=== PATIENT | male | born 1940 | race Caucasian/White ===

== ENCOUNTER → 2018-08-03 06:19 | Outpatient (CLI) | payer OTHER, SELFPAY ==
[2016-10-05 01:34] VITALS: BMI 69.6
--- NOTE | 2018-08-03 06:28 | RAD_ITS ---
STUDY: X-RAY CHEST REASON FOR EXAM: Male, 77 years old. COPD TECHNIQUE: Frontal and lateral views COMPARISON: None. FINDINGS: The lungs are expanded. Bibasilar atelectasis and interstitial prominence. Normal size heart. Normal mediastinum and juve. Normal visualized pulmonary arteries. Calcified aortic arch and descending thoracic aorta. Mild degenerative changes of the thoracic spine. Normal visualized ribs, clavicles, and shoulders. There is no demonstrated abnormality of the visualized soft tissue structures of the upper abdomen. RAD/Chest PA and Lateral IMPRESSION: Bibasilar atelectasis and interstitial prominence. Electronically Signed: Clement Lawson DO at 19:10 EDT Tel [phone], Service support ,
--- NOTE | 2018-08-03 10:57 | PFTCOMP ---
COMPLETE PULMONARY FUNCTION TEST INTERPRETATION Brief HPI: Patient is a 77 year old male, currently under the care of Dr. Gallardo, who presents to [facility] for complete pulmonary function tests secondary to diagnosis of COPD and asbestosis. Respiratory therapist reports good effort and reproducible results. Interpretation: Forced expiration spirometry shows a severe large airways obstructive ventilatory defect with an FEV1 of 48% predicted. There is no significant bronchodilator response by strict ATS criteria. Spirograms are of good quality and plateau slowly, indicating slowly emptying areas of the lungs. The respiratory flow volume loop shows decreased expiratory flow rates at all lung volumes consistent with airway obstruction. Lung volumes were not ordered. Diffusion capacity by carbon monoxide is decreased at 26% predicted. The airway resistance was not ordered. Compared to previous pulmonary function tests from 07/22/2011, there is been a significant reduction in FEV1 by 25%. Impression: Irreversible severe large airways obstructive ventilatory defect with symmetric reduction diffusing capacity. There has been worsening compared to previous testing in 2012.
== END ==
PROVIDERS: Family Provider Family Medicine; PCP Family Medicine; Referring Provider Orthopaedic Surgery; Visit Provider Orthopaedic Surgery
DX: J44.9 Chronic obstructive pulmonary disease, unspecified (principal); Z77.090 Contact with and (suspected) exposure to asbestos
CPT/HCPCS: 71046; 94060; 94729

== ENCOUNTER → 2019-11-08 09:18 | Outpatient (CLI) | payer OTHER, SELFPAY ==
--- NOTE | 2019-11-08 09:29 | PR.ITP_ITS ---
General Information - General Information Admitting Diagnosis: COPD/EMPHYSEMA/CHF/CAD Gold Classification:: GOLD 3: Severe Oxygen: 4 - PFT FEV1:: 1.47 FVC:: 2.73 FEV1/FVC%:: 54 - Education/Goals Barriers to Learning: Vision Impairment Individual Counseling: Initial Assessment: Dyspnea control techniques at rest, activity, and ADLs, Inhaled and respiratory medications, Exacerbation prevention & management, O2, Rx, system, safety, ADL management and pacing, Home exercise plan & guidelines Patient Goals: Breathe better: Initial Assessment, Increase endurance/stamina: Initial Assessment, Return to recreation/hobby: Initial Assessment, Control panic/anxiety: Initial Assessment, Return to work: Initial Assessment, Improve diet and nutrition: Initial Assessment, Symptom management: Initial Assessment, Take medications correctly: Initial Assessment, Stop smoking/maintain cessation: Initial Assessment, Improve weight: Initial Assessment Exercise - Initial Assessment - Visit Date of Eval: 11/08/19 - PRE-PULMONARY REHAB EVALUATION - Problem/Goals Problems: Deconditioning, No regular exercise, Knowledge deficit exercise guidelines, Knowledge deficit exercise safety Goals:: Aerobic exercise 30-60 mins x 9 weeks - Physician Prescribed Exercise Modalities: NuStep, SciFit Frequency (days/week): 3 Duration (Minutes):: 30-45 Intensity: 60-80% of age predicted maximum heart rate reserve METs - Progression: 0.5-1.0 MET, RPE 11-14 WEEK: 2.0 - PATIENT VERY DEBILITATED - Plan Plan and Plan to Review:: Benefits of exercise, Core components of exercise, How to measure dyspnea level, How to monitor dyspnea level, Exercise intensity, Exercise safety guideline, Home exercise guidelines, Eduardo: 3-4/-13 Disease Management - Initial - Problems/Goals-Hypoxemia Hypoxemia Problems:: Hypoxemia Hypoxemia Goals:: Hypoxemia managed, Using O2 as Rx's safely - Problems/Goals-Medications Medication Goals: Adherence to prescribed medications, Correct technique/timing & care of MDI, DPI, nebulizer, and spacer. - Problems/Goals-Bronchial Hygiene Bronchial Hygiene Problems:: Ineffective secretion clearance, Respiratory infection Prevention/Management Bronchial Hygiene Goals:: Pt demonstrates effective cough, effective secretion clearance., Pt describes signs and symptoms of infection. - Initial Assessment Medications: Yes MDI, Yes DPI, Yes NEB, Yes Spacer Patient Reports:: Prod cough daily <1 Tbsp, Nasal Congestion - Plans Hypoxemia Plan:: Monitor SpO2 rest & with exercise, Train appropriate O2 use at rest, Train appropriate O2 use with exercise, Train O2 safety & systems Reviewed prescribed medications:: Purpose, Schedule, Side effects, Importance of compliance Instruct correct technique/timing & care:: MDI, DPI, Nebulizer, Return demo use of inhaler Bronchial Hygiene Plan: Controlled cough, Vibratory PEP device, Role of exercise in secretion clearance, Hydration, Hand hygiene, Evaluate sputum, When to call MD, Signs/symptoms to report:, Influenza/Pneumovax vaccines Psychosocial - Initial Assess - Problems/Goals Problems: Anxiety, Ineffective coping, Impaired Q.O.L. - Psychosocial Test Depression:: Anxiety, Impaired QOL Referred to MD for counseling:: No - Plan Reviewed screening results: Yes Instructions given regarding:: Benefits of exercise, Relaxation techniques, Training in coping strategies Stress management: Recommend counseling, Recommended follow-up with MD for cons idered of Rx Tobacco - Initial Assessment - Program Goals Tobacco Program Goals: Complete smoking cessation. Attend education classes. Improve Knowledge Test score - Stage of Change Stages of Change:: Pre-contemplation - PATIENT CONCERNED ABOUT ABILITY TO GET HERE 3-DAYS PER WEEK. REQUIRES ASSISTANCE DRESSING BATHING ETC. AND THEN BEING ABLE TO GET TO THE PROGRAM THROUGH THE HOSPITAL W/O ASSISTANCE., Action - Learning Barriers Learning Barriers: Hearing, Vision - Family Support Do you have family support?: Yes - Tobacco Use Tobacco Use: Non-smoker - Intervention Smoking Cessation Referral:: No Individual Education/Counseling:: No Education Schedule Given:: Yes - Education Gave Education Materials For:: Pulmonary Disease, Risk Factors, Breathing Techniques, Medical Compliance, Pulmonary A&P, Exacerbation Signs & Symptoms, Stress & Relaxation Nutrition/Wt Mgmt - Initial - Problems/Goals Problems: Overweight Goals: Wt Loss 1-2 lbs per week - Weight Management Knowledge Deficit Management of:: Overweight, Osteoporosis, Lack of vitamin D/Ca++ supplement, Role of exercise in weight control, Weight control w /Prednisone Admit Height:: 5 ft 9 in Admit Weight:: 200 lb Admit BMI:: 29.5 - Diabetes Diabetes:: No - Intervention Referral to dietitian:: No Referral to Diabetic Clinic:: No Will attend diet classes:: Yes - Plan Nutrition Plan: Yes Review BMI or WC & identify target wt & strategies for wt control, Yes Nutrition education class:, Yes Medication education class [Prednisone]:, Yes Weight control education class: Patient Health Questionnaire Initial Assessment 1. Little interest or pleasure in doing things: Not at all 2. Feeling down, depressed, or hopeless: Not at all 3. Trouble falling or staying asleep, or sleeping too much: Not at all 4. Feeling tired or having little energy: Several days 5. Poor appetite or overeating: Not at all 6. Feeling bad about yourself -- or that you are a failure or have let yourself or your family down: Several days 7. Trouble concentrating on things, such as reading the newspaper or watching television: Not at all 8. Moving or speaking so slowly that other people could have noticed. Or the opposite - being so fidgety or restless that you have been moving around a lot more than usual: Several days 9. Thoughts that you would be better off , or of hurting yourself in some way: Not at all Total Score: 3 COPD Knowledge Test Initial COPD is a lung disease that:: Makes it hard to breathe & gets worse over time In the [place] the term COPD describes 2 main lung conditions:: Emphysema & chronic bronchitis The most common lung irritant that causes COPD is:: Cigarette smoke Common signs and symptoms of COPD include:: An ongoing cough/cough that produces a large amount of mucus, & SOB If you have COPD, what steps can you take?: All of the above Swelling of the ankles is common in COPD:: True Fatigue [tiredness] is common in COPD:: True Wheezing is common in COPD:: True Crushing chest pain is common in COPD:: True Rapid weight loss is common in COPD:: True Breathlessness is a normal response to exercise: True Exercise should be avoided if it makes you short of breath: True All bronchodilators act within 10 minutes: True A spacer device increases the medication to the lungs: True Annual flu vaccine is recommended for pts w/lung disease: True COPD Knowledge Test Total Score:: 10 COPD Assessment Test [CAT] - Questions Never cough = 0, Cough all the time = 5: 2 No phlegm = 0, Chest full of phlegm = 5: 4 No chest tightness = 0, Chest very tight = 5: 4 No breathless w/exertion = 0, Very breathless w/exertion = 5: 5 No limitations w/activity = 0, Very limited w/activity = 5: 4 Confident leaving home = 0, Not at all confident = 5: 3 Sleep soundly = 0, Don't sleep soundly = 5: 4 Lots of energy = 0, No energy at all = 5: 4 Total CAT score:: 30 Self-Efficacy Initial Assessment We would like to know how confident you are in doing certain activities. Please select your confidence level for:: Select your confidence level for the following using the scale 1-10 where 1 is not at all confident and 10 is totally confident. Your score is the average of all 6 responses. Fatigue: How confident are you that you can keep the fatigue caused by your disease from interfering with the things you want to do? Select Number: 3 Physical Discomfort or Pain: How confident are you that you can keep the physical discomfort or pain of your disease from interfering with the things you want to do? Select Number: 5 Emotional Distress: How confident are you that you can keep the emotional distress caused by your disease from interfering with the things you want to do? Select Number: 5 Other Symptoms or Health Problems: How confident are you that you can keep other symptoms or health problems from interfering with the things you want to do? Select Number: 6 Different Tasks and Activities: How confident are you that you can do the different tasks and activities needed to manage your health condition so as to reduce your need to see a doctor? Select Number: 5 Medication: How confident are you that you can do things other than just taking medication to reduce how much your illness affects your everyday life? Select Number: 5 Total Score:: 4 Nutrition Survey - Nutrition Survey Instructions Scoring Instructions: Scoring is as follows: Yes = 1 points. No = 0 point. Patient score that is >/=12 is considered to be at potential nutritional risk and could benefit from a referral to a registered dietitian. - Nutrition Survey Initial Have you lost >10 lbs over the past 2 months without trying?: No Are you following a special diet at home for diabetes, low fat, or low salt?: Yes Are you interested in meeting with a dietitian for help understanding your diet?: No Do you eat less than 3 meals a day?: Yes Do you eat fatty meats (patel, sausage, ribs, etc), fried foods, desserts, large amounts of salad dressings, margarine, butter, or cheese most days?: No Do you have food allergies? [Enter types in comment field]: No Do you eat in restaurants more than 3 times a week?: No Do you season food with salt, seasoning salt, or garlic salt?: No Do you used canned, boxed, frozen meals, or soups, seasoning packets?: Yes Total Score:: 3
--- NOTE | 2019-11-08 09:29 | PR.HP_ITS ---
History of Present Illness Arrival date:: 11/08/19 Arrival time:: 09:29 Date of Referral:: 11/01/19 Date of Evaluation: 11/08/19 Referring Physician: JORY MONSON Primary Diagnosis: SEVERE COPD GOLD CLASSIFICATION 3 mMRC Breathless Scale: When is the patient short of breath? Y/N Grade: Description of Breathlessness: 0 I only get breathless with strenuous exercise. 1 I get short of breath when hurrying on level ground or walking up a slight hill. 2 On level ground, I walk slower than people of the same age because of breathless, or have to stop for breath when walking at my own pace. 3 I stop for breath after walking 100 yards or after a few minutes on level ground. 4 I am too breathless to leave the house or I am breathless when dressing. Respiratory Problems: Yes: Retain Secretions, Limited Range of Motion, Fatigue, Wheezing, Able to Speak in Full Sentences, Ankle Swelling, Dyspnea at Rest, Dyspnea with Activity, Cough with Secretions Home Medications: Home Medications Albuterol Aerosols [Ventolin Aerosols] 2.5 mg INHALATION Q6HWA.RT 07/01/16 Albuterol Inhaler [Ventolin Hfa] 07/01/16 Apixaban [Eliquis] 5 mg PO BID 07/01/16 Aspirin E.C. [Ecotrin] 81 mg PO DAILY@0800 07/01/16 Benzonatate [Tessalon Perle] 07/01/16 Budesonide Inhaler 180 mcg [Pulmicort Inhaler 180 mcg] 07/01/16 Diltiazem HCl [Diltiazem 24Hr Cd] 120 mg PO 07/01/16 Docusate Sodium [Stool Softener] 100 mg PO 07/01/16 Flaxseed Oil 07/01/16 Furosemide [Lasix] 40 mg PO DAILY 07/01/16 Isosorbide Mononitrate [Imdur] 60 mg PO 07/01/16 Montelukast [Singulair] 07/01/16 Oxygen, Home [Home Oxygen] 2 - 4 lpm NASAL 07/01/16 Pantoprazole Sodium [Protonix] 40 mg PO DAILY 07/01/16 Potassium Gluconate 07/01/16 Potassium Iodide [Sski] 0 g 07/01/16 Prednisone [Deltasone] 20 mg PO 07/01/16 Terazosin HCl [Hytrin] 4 mg PO QHS 07/01/16 Tiotropium [place] [Spiriva 18 MCG] 07/01/16 Warfarin [Coumadin ([facility])] 2.5 mg PO 07/01/16 Atorvastatin Calcium [Lipitor] 20 mg PO QHS 11/08/19 Dofetilide [Tikosyn] 250 mcg PO Q12 11/08/19 Fluticasone Propionate [Flonase Allergy Relief] 9.9 ml NS 11/08/19 Guaifenesin [Mucus Relief] 400 mg PO BID 11/08/19 Ipratropium [place] 0.06% [ATROVENT NASAL SPRAY (g)] 1 spray NASAL TID 11/08/19 Lidocaine [Lidocaine 5%] 35 gm TOPICAL 11/08/19 Olodaterol HCl [Striverdi Respimat] 4 gm IH 11/08/19 Roflumilast [Daliresp] 500 mcg PO 11/08/19 Sennosides/Docusate Sodium [Docusate Sodium-Sennosides Tab] 1 each PO 11/08/19 Torsemide [Demadex] 20 mg PO 11/08/19 Allergies/Adverse Reactions: Allergies No Known Allergies Allergy (Verified 11/08/19 09:42) - Secretions Normal Color:: CLEAR Thick:: Yes Thin:: No Amount/Day:: 1 TSP Cough:: Yes A.T.C.: Yes Hx of Sleep Apnea: Yes Do you snore loudly (louder than talking or can be heard through closed doors)?: Yes - JUST GOT PUT ON CPAP LAST TUESDAY FOR AT NIGHT. Do you often feel tired/ fatigued/ sleepy during daytime?: Yes Has anyone observed you stop breathing during sleep?: No History of Hypertension (for STOP score): Yes STOP Results: Positive Medical Utilization Do you use a peak flow meter at home?: No Do you use a spacer device with your inhalers?: No Number of hospital visits in the last year?: 4 - MAYBE 5 Do you see your physician on a regular schedule?: Yes How often?: 3 MONTHS Advanced Directives - Advanced Directives Power of Business Intelligence Analyst: Yes - DAUGHTER Living Will: Yes Advance Directives Information Provided: No Advance Directives on File: No - PATIENT IS NOT SURE DNR Order?:: Yes - MOLST See MOLST form: No Past Medical History - Covid-19 Screening Fever: No Unexplained muscle aches: No Current respiratory symptoms: No Upper respiratory infections symptoms: No Gastro-intestinal symptoms: No Yct-Tupm-Hmtrjm symptoms: No Has tested positive for COVID-19 in last 30 days: No Had contact w/person w/symptoms or Covid-19 (+) last 14 days: No Has High Risk Exposures ID'd by Health dept/Inf Control team: No 65 years or older:: Yes Lives in Assisted Living facility:: No Has a chronic lung disease or moderate to severe asthma:: Yes Has a serious heart condition:: Yes Immunocompromised:: No Severely obese (Body Mass Index of 40 or higher):: No Diabetic:: No Has chronic kidney disease undergoing dialysis:: No Has liver disease:: No Medical History: Past Medical History (Last Updated 11/08/19 @ 09:51 by Arthur Orellana, CAMPUS SAFETY OFFICER, DSP ENGINEER, BS) A-FIB S/P DCCV A-fib I48.91 Asbestosis J61 CAD (coronary artery disease) I25.10 Cancer of colon C18.9 Congestive heart failure (CHF) I50.9 Dyspnea on minimal exertion R06.00 Emphysema of lung J43.9 GERD (gastroesophageal reflux disease) K21.9 LOST RIGHT FOREARM Pulmonary embolism I26.99 S/P RT HEMICOLECTOMY Acute exacerbation of chronic obstructive pulmonary disease (COPD) J44.1 CKD (chronic kidney disease) N18.9 Chronic obstructive pulmonary disease (COPD) J44.9 - Current/ Previous Services Pulmonary Rehab:: Yes - Comments Comments: PATIENT HAS COMPLETED PULMONARY REHAB ON 3 SEPERATE OCCURANCES FOR THE FULL MAXIMUM OF 36 SESSIONS IN THE PAST. Social History - Smoking History Smoking Status: Former smoker Hx Tobacco Use: No Hx Smoking Exposure: No - Alcohol Use Alcohol Usage: No - Substance Abuse Hx Substance Use: No - Occupation Occupation (List type of work in comments):: Retired - Hobbies, Recreation, Social Activities Recreational Activities: I can hardly do any recreational activities - [facility] IS CHEDULING HOME HEALTH AIDE TO ASSIST PATIENT WITH ALDs Functioning ADL/IADL - Current Ability Current Ability: Needs some help Self-Care (e.g.,grooming, dressing, & bathing), Needs some help Ambulation, Needs some help Transfer, Needs some help Household tasks (e.g., light meal prep, laundry, shopping) - Pt Functioning Prior to Problem Prior Functioning: Self-Care (e.g.,grooming, dressing, & bathing): Needs some help, Ambulation: Needs some help, Transfer: Needs some help, Household tasks (e.g., light meal prep, laundry, shopping): Needs some help Social Environment - Status Marital Status: - Current Living Arrangements Living Environment:: Alone - Children How many children do you have?: 2 Do any of your children live nearby?: No - Safety Do you feel safe in your surroundings?: Yes - Assistance Do you need any assistance at home?: YES; [facility] IS LOOKING IN TO PROVIDED A HOME HEALTH AIDE Review of Systems Review of Systems: Right click = Denies (Slash). Left click = Reports ([place]) Respiratory: Reports: Cough, SOB at Rest, SOB upon Exertion, Sputum production, Wheezing, Fatigue, Sleep, Normal. Denies: Appetite, Normal Risk Factor Assessment - Chief Complaint Chief Complaint: STAGE 3 SEVERE COPD/EMPHYSEMA - Vital Signs Temperature: 97.4 F Pulse Rate: 74 Respiratory Rate: 18 Pulse Ox: 98 - Obesity Height: 5 ft 9 in Weight:: 200 lb Weight in Pounds: 200.0 lbs Weight Source: Estimated by Patient Body Mass Index (BMI): 29.5 - Physical Activity Physical Inactivity: None - Risk Stratification Risk Guidelines: Lowest Risk: Risk Factor for Smoking, Risk Factor for Dyslipidemia, Risk Factor for Diabetes, Moderate Risk: Risk Factor for Hypertension, Highest Risk: Risk Factor for Obesity, Risk Factor for Sedentary Lifestyle - For Smoking Smoking Risk Guidelines: Smoking Low Risk: None or quit greater than 6 months ago. Smoking Moderate Risk: Smoker or quit 6 months or less ago. Smoking High Risk: Smoker - For Dyslipidemia Dyslipidemia Risk Guidelines: Low Risk: Moderate Risk: High Risk: 15-25% fat 25.1-29% fat >/= 30% fat. <7% sat fat 7-9% sat fat >9% sat fat. <150 mg chol 150-299 mg chol >/= 300 mg chol. LDL <100 LDL 100-129 LDL >/= 130. Chol/HDL ratio <5.0 Chol/HDL ratio 5.0-6.0 Chol/HDL ratio >6.0. Triglycerides <100 Triglycerides 100- 149 Triglycerides >/= 150 - For Diabetes Mellitus Diabetes Risk Guidelines: Diabetes Low Risk: HgA1c <6.5% and/or FBG <120. Diabetes Moderate Risk: HgA1c 6.6-7.9% and/or FBG 120-180. Diabetes High Risk: HgA1c >/= 8% and/or FBG >180 - For Obesity/Overweight Obesity/Overweight Risk Guidelines: Obesity Low Risk: BMI <25.0. Obesity Moderate Risk: BMI 25-29.9. Obesity High Risk: BMI >/= 30.0 - For Hypertension Hypertension Risk Guidelines: Hypertension Low Risk: Systolic <120 and Diastolic <80. Hypertension Moderate Risk: Systolic 120-139 and Arabella stolic 80-89. Hypertension High Risk: Systolic >/= 140 and Diastolic >/= 90 - For Sedentary Lifestyle Sedentary Lifestyle Risk Guidelines: Sedentary Lifestyle Low Risk: >/= 1,500 kcal/week. Sedentary Lifestyle Moderate Risk: 700-1,499 kcal/week. Sedentary Lifestyle High Risk: < 700 kcal/week - For Depression Depression Risk Guidelines: Depression Low Risk: Not clinically depressed. Depression Moderate Risk: Mildly depressed. Depression High Risk: Clinically depressed Motivation - Motivation to Participate On a scale of 1 to 10, how prepared are you to commit to attending program?: 8 What do you see as barriers to successfully being able to complete the program?: BEING ABLE TO GET TO [facility] FROM THE MAIN ENTRANCE WITHOUT ASSISTANCE. What do you see as the benefits of succesfully completing the program? In other words, what do you hope to get out of participating in the program?: GETTING STRENGHT BACK. Do you have a spouse or signficant other, family or friends who will help support you to complete the program?: YES Diagnostic Data Review - Pulmonary Function Test FEV1:: 1.47 FVC:: 2.73 FEV1/FVC%:: 54 Gold Classification: GOLD class III(severe COPD)with FEV1/FVC<70, 30%</=FEV1< 50% predicted
[2019-11-08 10:11] VITALS: BMI 29.5
[2019-11-08 10:19] VITALS: PULSE 74; RESP 18; TEMP 36.3; O2SAT 98; BMI 29.5
== END ==
PROVIDERS: PCP Family Medicine
DX: J44.9 Chronic obstructive pulmonary disease, unspecified (principal)

== ENCOUNTER 2019-12-03 14:15 | Outpatient (RCR) | payer OTHER, SELFPAY ==
[2019-11-08 10:19] VITALS: BMI 29.5
== END 2019-12-05 23:59 ==
LOC: PR 14:15
PROVIDERS: PCP Family Medicine
DX: J44.1 Chronic obstructive pulmonary disease with (acute) exacerbation (principal)
CPT/HCPCS: 97150; G0424

== ENCOUNTER 2020-01-04 14:15 | Outpatient (RCR) | payer OTHER, SELFPAY ==
[2019-11-08 10:19] VITALS: BMI 29.5
--- NOTE | 2019-12-12 06:45 | PCM.PR.TP ---
Exercise - 30-Day Assessment - Physician Prescribed Exercise Modalities: NuStep, SciFit Frequency (days/week): 3 Duration (Minutes):: 30-45 Intensity: 60-80% of age predicted maximum heart rate reserve Aerobic Exercise [30-60 min 3-7x/week]:: Not progressing Target heart rate: 86-115 Eduardo-13 METs - Progression: 0.5-1.0 MET, RPE 11-14 WEEK: 3.0 - Home Exercise Home Exercise:: No Time (minutes):: 0 - encouraged home activity Disease Management - 30-Day - Hypoxemia Reassessment: Demonstrates knowledge of O2 Rx at rest, Demonstrates knowledge of O2 Rx with exercise, Using O2 as prescribed, Has home O2 as prescribed, Uses port O2 as prescribed - Medications Medication list reviewed:: Yes Taking medications 100% of the time:: Met Medication reassessment: Yes Pt demonstrates correct technique timing for MDI, Yes Pt demonstrates correct technique timing for DPI, Yes Pt demonstrates correct technique timing for NEB, Yes Pt demonstrates correct technique timing for spacer - Bronchial Hygiene Bronchial Hygiene Plan: Yes Pt demonstrates correctly for effective cough, Yes Pt demo correct for device, Yes Pt demo correct for sputum management, Yes Pt demo correct for improved hydration, Yes Pt demo correct for hand hygiene, Yes Pt demo correct for verbalize when to call MD Psychosocial - 30-Day - Assessment Reassessment: Management of stress & depression, Practicing interventions, Counseling referral, Demonstrate coping strategies, COPD assessment w/ CAT, Geriatric depression screening, Self efficacy score Tobacco - 30-Day Assessment - Program Goals Tobacco Program Goals: Complete smoking cessation. Attend education classes. Improve Knowledge Test score - Stage of Change Stages of Change:: Action - Learning Barriers Learning Barriers: Declined education - Family Support Do you have family support?: No - relies on home health aids - Tobacco Use Tobacco Use: Non-smoker - Education Gave Education Materials For:: Pulmonary Disease, Risk Factors, Breathing Techniques, Medical Compliance, Pulmonary A&P, Exacerbation Signs & Symptoms, Stress & Relaxation Nutrition/Wt Mgmt - 30-Day - Weight Management Weight:: 196 lb Weight Goals Progress:: Progressing Patient Health Questionnaire 30-Day Re-eval Assessment 1. Little interest or pleasure in doing things: Not at all 2. Feeling down, depressed, or hopeless: Not at all 3. Trouble falling or staying asleep, or sleeping too much: Not at all 4. Feeling tired or having little energy: Several days 5. Poor appetite or overeating: Not at all 6. Feeling bad about yourself -- or that you are a failure or have let yourself or your family down: Several days 7. Trouble concentrating on things, such as reading the newspaper or watching television: Not at all 8. Moving or speaking so slowly that other people could have noticed. Or the opposite - being so fidgety or restless that you have been moving around a lot more than usual: Several days 9. Thoughts that you would be better off , or of hurting yourself in some way: Not at all How difficult have these problems made it for you to do your work, take care of things at home, or get along with other people?: Somewhat difficult Total Score: 3 COPD Assessment Test [CAT] - Questions Never cough = 0, Cough all the time = 5: 2 No phlegm = 0, Chest full of phlegm = 5: 4 No chest tightness = 0, Chest very tight = 5: 4 No breathless w/exertion = 0, Very breathless w/exertion = 5: 5 No limitations w/activity = 0, Very limited w/activity = 5: 4 Confident leaving home = 0, Not at all confident = 5: 3 Sleep soundly = 0, Don't sleep soundly = 5: 4 Lots of energy = 0, No energy at all = 5: 4 Total CAT score:: 30 Self-Efficacy 30-Day Re-eval Assessment We would like to know how confident you are in doing certain activities. Please select your confidence level for:: Select your confidence level for the following using the scale 1-10 where 1 is not at all confident and 10 is totally confident. Your score is the average of all 6 responses. Fatigue: How confident are you that you can keep the fatigue caused by your disease from interfering with the things you want to do? Select Number: 3 Physical Discomfort or Pain: How confident are you that you can keep the physical discomfort or pain of your disease from interfering with the things you want to do? Select Number: 5 Emotional Distress: How confident are you that you can keep the emotional distress caused by your disease from interfering with the things you want to do? Select Number: 5 Other Symptoms or Health Problems: How confident are you that you can keep other symptoms or health problems from interfering with the things you want to do? Select Number: 6 Different Tasks and Activities: How confident are you that you can do the different tasks and activities needed to manage your health condition so as to reduce your need to see a doctor? Select Number: 6 Medication: How confident are you that you can do things other than just taking medication to reduce how much your illness affects your everyday life? Select Number: 5 Total Score:: 5
== END 2020-01-05 23:59 ==
LOC: PR 14:15
PROVIDERS: PCP Family Medicine
DX: J44.1 Chronic obstructive pulmonary disease with (acute) exacerbation (principal)
CPT/HCPCS: 97150; G0424

== ENCOUNTER 2020-01-18 13:20 | Emergency (ER) | payer OTHER, BC, SELFPAY ==
[2019-11-08 10:19] VITALS: BMI 29.5
[2020-01-18 13:21] VITALS: BP 116/57; PULSE 76; RESP 20; TEMP 36.6; O2SAT 93; BMI 28.4
[2020-01-18 13:28] VITALS: BP 116/57; PULSE 76; RESP 20; TEMP 36.6; O2SAT 93
--- NOTE | 2020-01-18 13:33 | EKG12_ITS ---
Test Reason : CP Blood Pressure : / mmHG Vent. Rate : 078 BPM Atrial Rate : 078 BPM P-R Int : 144 ms QRS Dur : 118 ms QT Int : 416 ms P-R-T Axes : 000 -76 031 degrees QTc Int : 474 ms Normal sinus rhythm Left axis deviation Right bundle branch block Septal infarct , age undetermined Abnormal ECG Confirmed by JENNIFER BARLOW, UMESH ([id number]), online editor LUIS QURESHI ([id number]) on 01/22/2020 8:39:42 AM Referred By: Confirmed By:UMESH RODRIGUEZ MD
--- NOTE | 2020-01-18 13:34 | ED.VIS.GEN ---
History of Present Illness Chief Complaint: Chest Pain Informant: Patient Narrative: 79-year-old male was driving to the hospital from [place] to attend pulmonary rehab when he had the sudden onset of a pressure/sharp pain just to the left of his sternum. He states that it does not radiate. He is not any short of breath than he usually is. He is on Eliquis due to pulmonary embolism in the past.. He gets all of his care at the [facility] in [place]. He notes that he has had a heart cath/stress test within the past year and were negative. He has a history of congestive heart failure but no known coronary artery disease. Past Medical History - Allergies and Home Meds Allergies/Adverse Reactions: Allergies No Known Allergies Allergy (Verified 01/18/20 13:29) Primary Care Physician: Tarun Colon MD [COURTESY STAFF PHYSICIAN] - Past Medical History: - - COPD congestive heart failure luminary embolism hyperlipidemia Surgical History: - - Right arm amputation Smoking Status: Former smoker Drugs: None Review of Systems General: Denies: Chills, Fever, Sweats Eyes: Denies: Visual changes - bilaterally, Diplopia ENT: Denies: Rhinorrhea, Sore throat Cardiovascular: Reports: Chest pain. Denies: Palpitations Respiratory: Reports: Dyspnea - Chronic no change, Cough. Denies: Dyspnea on exertion Gastrointestinal: Denies: Abdominal pain, Nausea, Vomiting, Diarrhea, Melena, Hematochezia Genitourinary: Denies: Dysuria, Hematuria, Frequency Musculoskeletal: Denies: Back pain, Extremity Pain Skin: Denies: Rash, Wounds Neurological: Denies: Headache, Weakness, Numbness Physical Exam Vital Signs/Narrative: Vital Signs Temp Pulse Resp BP Pulse Ox 01/18/20 13:21 97.9 F 76 20 H 116/57 L 93 Inital Vital Signs reviewed: Yes General: Well nourished, Well developed, Obese, No Acute Distress Head: Normocephalic, Atraumatic Eyes: Perrl, EOMI ENT: Moist mucous membranes, No rhinorrhea Neck: Supple, Nontender Cardiovascular: Regular rate, Regular rhythm, No murmurs Respiratory: No distress, CTA bilaterally, Chest tenderness - Patient is focally tender just to the left of the mid sternum. He tells me that it reproduces the pain he was experiencing Abdomen: Soft, Nontender, Nondistended, Normal bowel sounds Back: Nontender, Normal Inspection Extremities: Nontender, No edema Skin: Normal color, No rash Neurological: Alert, Oriented x3, Cranial nerves II-XII grossly intact, Normal Strength, Normal Sensation Psychological: Normal affect, Normal Mood Diagnostic/Tx/Re-eval Clinical Impression(s) from Imaging Studies Chest X-Ray 01/18/20 13:58 IMPRESSION: Hyperinflation. Stable mild degree of increased linear markings at the lung bases suggestive of scarring. Prominence of the central pulmonary arteries. Electronically Signed: Khoi Margarito, at 14:23 EST , Service support , Laboratory Last Values WBC 8.2 K/mm3 (4.4-11.0) 01/18/20 13:25 RBC 4.47 M/mm3 (4.6-6.2) L 01/18/20 13:25 Hgb 12.5 g/dL (13.0-16.5) L 01/18/20 13:25 Hct 39.3 % (40-54) L 01/18/20 13:25 MCV 87.9 fL (80-94) 01/18/20 13:25 MCH 28.0 pg (27.0-32.0) 01/18/20 13:25 MCHC 31.8 g/dL (32-36) L 01/18/20 13:25 RDW Std Deviation 39.8 fl (35.1-43.9) 01/18/20 13:25 RDW Coeff of [place] 12.4 % (11.6-14.6) 01/18/20 13:25 Plt Count 217 K/mm3 (150-450) 01/18/20 13:25 MPV 9.1 fl (6.2-12.0) 01/18/20 13:25 Immature Gran % (Auto) 0.500 % (0.0-0.9) 01/18/20 13:25 Neut % (Auto) 82.5 % (47-70) H 01/18/20 13:25 Lymph % (Auto) 9.8 % (19-41) L 01/18/20 13:25 [place] % (Auto) 5.7 % (0-10) 01/18/20 13:25 Eos % (Auto) 1.0 % (0-5) 01/18/20 13:25 Baso % (Auto) 0.5 % (0-1) 01/18/20 13:25 Absolute Neuts (auto) 6.8 X10^3/uL (2.0-7.7) 01/18/20 13:25 Absolute Lymphs (auto) 0.81 X10^3/uL (0.83-4.51) L 01/18/20 13:25 Nucleated RBC % 0 % (0-5) 01/18/20 13:25 PT 15.9 SECONDS (11.7-14.9) H 01/18/20 13:25 INR 1.3 01/18/20 13:25 Sodium 143 mmol/L (136-145) 01/18/20 13:25 Potassium 3.8 mmol/L (3.5-5.1) 01/18/20 13:25 Chloride 111 mmol/L (98-107) H 01/18/20 13:25 Carbon Dioxide 28.0 mmol/L (21.0-32.0) 01/18/20 13:25 Anion Gap 4 (5-15) L 01/18/20 13:25 BUN 11 mg/dL (7-18) 01/18/20 13:25 Creatinine 1.02 mg/dL (0.70-1.30) 01/18/20 13:25 Estim Creat Clear Calc 60.65 ml/min 01/18/20 13:25 Est GFR (MDRD) Af Amer 91 mL/min (>60) 01/18/20 13:25 Est GFR (MDRD) Non-Af 75 mL/min (>60) 01/18/20 13:25 BUN/Creatinine Ratio 10.8 RATIO (10-20) 01/18/20 13:25 Glucose 124 mg/dL (74-106) H 01/18/20 13:25 Calcium 9.2 mg/dL (8.5-10.1) 01/18/20 13:25 Troponin I < 0.015 ng/mL (<0.045) 01/18/20 13:25 - EKG Initial EKG Interpretation: Sinus Rhythm - EKG demonstrates a normal sinus rhythm at a rate of 78. Right bundle branch block noted. - Medical Decision Making Chest x-ray showed acute findings. EKG shows no evidence of ACS. Troponin negative. He is on Eliquis and has not missed any doses. Therefore I do not think we need to pursue a PE evaluation. His pain is reproducible I think it is most likely related to chest wall pain. This point patient will be discharged home. Follow up with his doctors as scheduled return if worsening or concerns ED Disposition - Plan for ED Patient: Disposition: Home or Assisted Living Diagnosis: Acute chest pain Instructions: ED CHEST PAIN Bharti Additional Instructions: Follow-up with your doctors as scheduled
[2020-01-18] MEDS: Ketorolac 15 MG/ML Vial IV (13:50)
[2020-01-18 13:53] LABS: Absolute Lymphocyte Count 0.81 X10^3/uL (0.83-4.51); Absolute Neutrophil Count 6.8 X10^3/uL (2.0-7.7); Basophil# 0.04 X10^3/uL; Basophil% 0.5 % (0-1); Eosinophil# 0.08 X10^3/uL; Hematocrit 39.3 % (40-54); Hemoglobin 12.5 g/dL (13.0-16.5); Lymphocyte # 0.81 X10^3/ul (4.0); Lymphocyte % 9.8 % (19-41); Mean Corp Hgb Conc 31.8 g/dL (32-36); Mean Corpuscular Volume 87.9 fL (80-94); Mean Platelet Vol. 9.1 fl (6.2-12.0); Monocyte# 0.47 X10^3/uL; Monocyte% 5.7 % (0-10); NRBC Flagged by Analyzer 0 % (0-5); Neutrophil # 6.79 X10^3/uL (2.7-7.7); Neutrophil % 82.5 % (47-70); Platelet Count 217 K/mm3 (150-450); RBC Distribution Width CV 12.4 % (11.6-14.6); RBC Distribution Width SD 39.8 fl (35.1-43.9); Red Blood Count 4.47 M/mm3 (4.6-6.2); White Blood Count 8.2 K/mm3 (4.4-11.0)
--- NOTE | 2020-01-18 13:58 | RAD_ITS ---
STUDY: X-RAY CHEST REASON FOR EXAM: Male, 79 years old. Chest pain this morning TECHNIQUE: Single AP portable view of the chest. COMPARISON: Comparison is made with prior study dated 08/03/2018. FINDINGS: EKG electrodes are seen. Hyperinflation. Stable mild degree of increased markings at the lung bases suggestive of bibasilar scarring. There is no demonstrated pleural abnormality. Normal size heart. Normal mediastinum and juve. There is prominence of the pulmonary hilar arteries without peripheral pulmonary vascular congestion, suggesting pulmonary hypertension. There is atherosclerotic calcification of the aortic arch with tortuosity. There are degenerative changes of the visualized thoracic spine. Normal visualized ribs, clavicles, and shoulders. There is no demonstrated abnormality of the visualized soft tissue structures of the upper abdomen. RAD/Chest 1 View (Portable) IMPRESSION: Hyperinflation. Stable mild degree of increased linear markings at the lung bases suggestive of scarring. Prominence of the central pulmonary arteries. Electronically Signed: Khoi Pimentel, at 14:23 EST , Service support ,
[2020-01-18 14:03] LABS: International Normalized Ratio 1.3; Prothrombin Time (Protime)PT. 15.9 SECONDS (11.7-14.9)
[2020-01-18 14:08] LABS: Anion Gap 4 (5-15); BUN 11 mg/dL (7-18); BUN/Creat Ratio 10.8 RATIO (10-20); Calcium,Total 9.2 mg/dL (8.5-10.1); Chloride 111 mmol/L (98-107); Creatinine, Serum 1.02 mg/dL (0.70-1.30); EST Glomerular Filtration Rate 75 mL/min (>60); Est Glom Filt Rate - Afr Amer 91 mL/min (>60); Estimated Creatinine Clearance 60.65 ml/min; Glucose 124 mg/dL (74-106); Potassium 3.8 mmol/L (3.5-5.1); Sodium Level 143 mmol/L (136-145)
[2020-01-18 14:47] VITALS: BP 113/60; PULSE 74; RESP 14
== END 2020-01-18 14:55 | disposition home or self-care (01) ==
PROVIDERS: Emergency Provider Emergency Medicine
DX: R07.9 Chest pain, unspecified (principal); I45.10 Unspecified right bundle-branch block; E78.5 Hyperlipidemia, unspecified; I50.9 Heart failure, unspecified; J44.9 Chronic obstructive pulmonary disease, unspecified; Z79.01 Long term (current) use of anticoagulants; Z86.711 Personal history of pulmonary embolism
CPT/HCPCS: 71045; 80048; 84484; 85025; 85610; 93005; 96374; 99285; A4216

== ENCOUNTER 2020-01-30 14:15 | Outpatient (RCR) | payer OTHER, SELFPAY ==
[2019-11-08 10:19] VITALS: BMI 29.5
--- NOTE | 2020-01-07 08:10 | PR.ITP_ITS ---
Exercise - 90-Day Assessment - Physician Prescribed Exercise Modalities: NuStep, SciFit Frequency (days/week): 3 Duration (minutes): 30-45 Aerobic Exercise [30-60 min 3-7x/week]:: Progressing Target heart rate: 100 Eduardo-13 METs - Progression: 0.5-1.0 MET, RPE 11-14 WEEK: 3.0 - Home Exercise Home Exercise?: No Disease Management - 90-Day - Hypoxemia Reassessment: Demonstrates knowledge of O2 Rx at rest, Demonstrates knowledge of O2 Rx with exercise, Using O2 as prescribed, Has home O2 as prescribed, Uses port O2 as prescribed - Medications Medication list reviewed:: Yes Taking medications 100% of the time:: Met Medication reassessment: Yes Pt demonstrates correct technique timing for MDI, Yes Pt demonstrates correct technique timing for DPI, Yes Pt demonstrates co rrect technique timing for NEB, Yes Pt demonstrates correct technique timing for spacer - Bronchial Hygiene Bronchial Hygiene Plan: Yes Pt demonstrates correctly for effective cough, Yes Pt demo correct for device, Yes Pt demo correct for sputum management, Yes Pt demo correct for improved hydration, Yes Pt demo correct for hand hygiene, Yes Pt demo correct for verbalize when to call MD Psychosocial - 90-Day - Assessment Depression reassess: Management of stress: Progressing, Management of depression: Progressing, Practicing interventions: Progressing Tobacco - 90-Day Assessment - Program Goals Tobacco Program Goals: Complete smoking cessation. Attend education classes. Improve Knowledge Test score - Stage of Change Stages of Change:: Action - Learning Barriers Learning Barriers: Participates in education - Family Support Do you have family support?: No - has home health aide - Tobacco Use Tobacco Use: Non-smoker - Education Gave Education Materials For:: Pulmonary Disease, Risk Factors, Breathing Techniques, Medical Compliance, Pulmonary A&P, Exacerbation Signs & Symptoms, Stress & Relaxation Nutrition/Wt Mgmt - 90-Day - Weight Management Weight Assessment:: Wt loss 1-2 lbs per week Weight:: 203 lb Weight Goals Progress:: Not progressing Patient Health Questionnaire 90-Day Re-eval Assessment 1. Little interest or pleasure in doing things: Not at all 2. Feeling down, depressed, or hopeless: Not at all 3. Trouble falling or staying asleep, or sleeping too much: Not at all 4. Feeling tired or having little energy: Several days 5. Poor appetite or overeating: Not at all 6. Feeling bad about yourself -- or that you are a failure or have let yourself or your family down: Several days 7. Trouble concentrating on things, such as reading the newspaper or watching television: Not at all 8. Moving or speaking so slowly that other people could have noticed. Or the opposite - being so fidgety or restless that you have been moving around a lot more than usual: Several days 9. Thoughts that you would be better off , or of hurting yourself in some way: Not at all How difficult have these problems made it for you to do your work, take care of things at home, or get along with other people?: Somewhat difficult Total Score: 3 Self-Efficacy 90-Day Re-eval Assessment We would like to know how confident you are in doing certain activities. Please select your confidence level for:: Select your confidence level for the following using the scale 1-10 where 1 is not at all confident and 10 is totally confident. Your score is the average of all 6 responses. Fatigue: How confident are you that you can keep the fatigue caused by your disease from interfering with the things you want to do? Select Number: 3 Physical Discomfort or Pain: How confident are you that you can keep the physical discomfort or pain of your disease from interfering with the things you want to do? Select Number: 5 Emotional Distress: How confident are you that you can keep the emotional distress caused by your disease from interfering with the things you want to do? Select Number: 5 Other Symptoms or Health Problems: How confident are you that you can keep other symptoms or health problems from interfering with the things you want to do? Select Number: 6 Different Tasks and Activities: How confident are you that you can do the different tasks and activities needed to manage your health condition so as to reduce your need to see a doctor? Select Number: 6 Medication: How confident are you that you can do things other than just taking medication to reduce how much your illness affects your everyday life? Select Number: 5 Total Score:: 5
== END 2020-02-04 23:59 ==
LOC: PR 14:15
PROVIDERS: PCP Family Medicine
DX: J44.1 Chronic obstructive pulmonary disease with (acute) exacerbation (principal)
CPT/HCPCS: 97150; G0424